=== PATIENT | female | born 1965 | race Caucasian/White ===

== ENCOUNTER 2018-09-30 10:02 | Emergency (ER) | payer MEDICAID ==
[2018-09-30 10:18] VITALS: BP 132/69
--- NOTE | 2018-09-30 10:36 | EDM.PDOC ---
ED HPI GENERAL MEDICAL PROBLEM - General Chief Complaint: Respiratory Problem Stated Complaint: POSSIBLE BRONCHITIS Time Seen by Provider: 09/30/18 10:27 Source of Information: Reports: Patient, Family, Old Records, RN Notes Reviewed History Limitations: Reports: No Limitations - History of Present Illness INITIAL COMMENTS - FREE TEXT/NARRATIVE: 52-year-old female presents emergency department today complaint of cough and shortness of breath, she does use tobacco products states she's been having difficulty breathing over the last couple days does get recurrent bronchitis Chest Pain Score (Numeric/FACES): 5 - Related Data Allergies Allergy/AdvReac Type Severity Reaction Status Date / Time morphine Allergy Nausea Verified 05/07/16 13:00 Home Meds: Home Meds Dapagliflozin Propanediol [Farxiga] 10 mg PO DAILY 05/07/16 [History] Escitalopram Oxalate [Lexapro] 5 mg PO DAILY 05/07/16 [History] Furosemide [Lasix] 20 mg PO DAILY 05/07/16 [History] Gabapentin [Neurontin] 600 mg PO TID 05/07/16 [History] metFORMIN [Glucophage] 250 mg PO BIDMEALS 05/07/16 [History] Albuterol Sulfate [Albuterol Sulfate Hfa] 18 gm IH Q2H PRN #1 hfa.aer.ad [Rx] Azithromycin [Zithromax] 250 mg PO DAILY #6 tab 09/30/18 [Rx] Benzonatate [Tessalon Perle] 100 mg PO TID PRN #30 capsule 09/30/18 [Rx] predniSONE [Prednisone] 20 mg PO DAILY #5 tablet 09/30/18 [Rx] Past Medical History HEENT History: Reports: Other (See Below) Other HEENT History: chronic left ear infection Respiratory History: Reports: Bronchitis, Recurrent Gastrointestinal History: Reports: GERD Musculoskeletal History: Reports: Fibromyalgia Endocrine/Metabolic History: Reports: Diabetes, Type II Oncologic (Cancer) History: Reports: Breast - Infectious Disease History Infectious Disease History: Reports: Chicken Pox - Past Surgical History GI Surgical History: Reports: None Female Surgical History: Reports: Hysterectomy Musculoskeletal Surgical History: Reports: Knee Replacement Oncologic Surgical History: Reports: Mastectomy Social & Family History - Tobacco Use Smoking Status *Q: Current Every Day Smoker Years of Tobacco use: 20 Packs/Tins Daily: 0.5 - Caffeine Use Caffeine Use: Reports: Soda ED ROS GENERAL - Review of Systems Review Of Systems: See Below Constitutional: Denies: Fever, Chills HEENT: Reports: No Symptoms Respiratory: Reports: Shortness of Breath, Cough, Sputum Cardiovascular: Reports: Dyspnea on Exertion GI/Abdominal: Reports: No Symptoms ED EXAM, GENERAL - Physical Exam Exam: See Below Exam Limited By: No Limitations General Appearance: Alert, WD/WN, No Apparent Distress Respiratory/Chest: No Respiratory Distress, Lungs Clear, Normal Breath Sounds, No Accessory Muscle Use, Chest Non-Tender Cardiovascular: Regular Rate, Rhythm, No Murmur Course - Vital Signs Last Recorded V/S: Last Vital Signs Temp 94.5 F L 09/30/18 10:22 Pulse 67 09/30/18 10:22 Resp 20 09/30/18 10:22 BP 132/69 09/30/18 10:22 Pulse Ox 96 09/30/18 10:22 Departure - Departure Time of Disposition: 10:35 Disposition: Home, Self-Care 01 Condition: Fair Clinical Impression: Bronchitis - Discharge Information Prescriptions: Albuterol Sulfate [Albuterol Sulfate Hfa] 18 gm IH Q2H PRN #1 hfa.aer.ad PRN Reason: Cough Azithromycin [Zithromax] 250 mg PO DAILY #6 tab Benzonatate [Tessalon Perle] 100 mg PO TID PRN #30 capsule PRN Reason: Cough predniSONE [Prednisone] 20 mg PO DAILY #5 tablet Referrals: Elena Nix DO [Primary Care Provider] - Additional Instructions: Take full course of antibiotics, take full course of prednisone, use the Tessalon Perles as needed help for cough, use your albuterol inhaler as needed for shortness of breath, Please followup with your primary care provider in 3- 5 suppress days if not better, please call return to the emergency department with worsening of symptoms. - Assessment/Plan Plan: Assessment Acuity = acute Site and laterality = bronchitis Etiology = suspicious for underlying COPD Manifestations = cough, sputum production, dyspnea Location of injury = Home Lab values = none Plan Elected to treat empirically with Z-Mark, short course of prednisone 20 mg once day 5 days, Tessalon Perles as needed and an albuterol inhaler follow-up primary care 3-5 days if not better This note was dictated using [employer] voice recognition software please call with any questions on syntax or grammar.
== END 2018-09-30 10:42 | disposition home or self-care (01) ==
LOC: JP.ED 10:02
DX: J40 Bronchitis, not specified as acute or chronic (principal); F17.210 Nicotine dependence, cigarettes, uncomplicated; Z88.5 Allergy status to narcotic agent; Z79.899 Other long term (current) drug therapy
CPT/HCPCS: 99283